=== PATIENT | male | born 1975 ===

== ENCOUNTER 2023-12-21 14:58 | Emergency (ER) | payer OTHER ==
[~2023-12-21] VITALS: Wt 83.9 kg
[2023-12-21] MEDS ORDERED: ETOMIDATE 20 MG/10 ML VIAL IV ONE (15:35)
[2023-12-21] MEDS ORDERED: HYDROmorphONE Hydrochloride 1 MG/ML SYR IV ONE (17:55)
[2023-12-21] MEDS ORDERED: PERCOCET 5-3251 EACH PO (18:29)
== END 2023-12-21 19:20 | disposition home or self-care (01) ==
LOC: ED 14:58 → EDSEX 15:21 → ED 15:21
DX: S82.302A Unspecified fracture of lower end of left tibia, initial encounter for closed fracture (principal); S82.832A Other fracture of upper and lower end of left fibula, initial encounter for closed fracture; V86.56XA Driver of dirt bike or motor/cross bike injured in nontraffic accident, initial encounter; Y93.55 Activity, bike riding; Y92.488 Other paved roadways as the place of occurrence of the external cause; Y99.8 Other external cause status